=== PATIENT | male | born 1955 | race Caucasian/White ===

== ENCOUNTER → 2025-03-20 | Day surgery (SDC) | payer MEDICARE, OTHER ==
[2025-03-19 13:01] VITALS: BMI 32.5
[~2025-03-20] MED LIST: PROPOFOL 10 MG/ML 20 ML VIAL IV ONE
[2025-03-20] MEDS: LACTATED RINGERS 1,000 ML IV SCH (12:07)
[2025-03-20] MEDS: IV FLUID CONTINUATION 1,000 ML IV ONE (12:08)
[2025-03-20 12:16] VITALS: TEMP 97
--- NOTE | 2025-03-20 13:09 | P.PCN ---
Date of Procedure: 03/20/25 Procedure(s) Performed: BRIEF HISTORY: Patient is a 69-year-old pleasant white male scheduled for an elective colonoscopy as a part of evaluation to habits for the last 4 months duration. PROCEDURE PERFORMED: Colonoscopy with snare polypectomy. PREOPERATIVE DIAGNOSIS: Change in bowel habits. IV sedation per Anesthesia. PROCEDURE: After informed consent was obtained, the patient, was brought into the endoscopy unit. IV sedation was administered by Anesthesia under continuous monitoring. Digital rectal examination was normal. Initially the Olympus CF-160 flexible video colonoscope was then inserted in the rectum, gradually advanced into the cecum without any difficulty. Careful examination was performed as the scope was gradually being withdrawn. Ileocecal valve and the appendiceal orifice were visualized and appeared normal. Prep was excellent. Mucosa of the cecum, had a 5 mm and a 7 mm polyp that was removed by cold snare polypectomy. Rest of the ascending colon, transverse colon, descending colon, sigmoid colon, and rectum appeared normal. Retroflexion was performed in the rectum and no lesions were seen. The patient tolerated the procedure well. IMPRESSION: 5 mm and 7 mm cecal polyp status post cold snare polypectomy Rest of the colon appeared normal RECOMMENDATIONS: Findings of this examination were discussed with the patient as well as his family. He was advised to be on a high-fiber diet and take fiber supplements on a regular basis. If the biopsy reveals adenoma he can have repeat colonoscopy in 5 years..
[2025-03-20 13:31] VITALS: BP 120/78; PULSE 61; RESP 14
== END ==
LOC: ORWHC2ENDO 11:16
PROVIDERS: ATTEND Internal Medicine Gastroenterology
DX: D12.0 Benign neoplasm of cecum (principal); R19.4 Change in bowel habit
CPT/HCPCS: 88305; 45385; J2704